=== PATIENT | female | born 1990 | race Caucasian/White ===

== ENCOUNTER 2019-03-16 16:50 | Observation (INO) ==
[2019-03-16] MEDS ORDERED: 0.9 % Sodium Chloride 500 ML ONE (19:34)
[2019-03-17] MEDS ORDERED: D5% in Water 1,000 ML IVC PRN (00:04)
[2019-03-17] MEDS ORDERED: Dextrose Gel 15 GM/37.5 ML TUBE PO PRN ×2 (00:04)
[2019-03-17 00:39] LABS: Hemoglobin 8.1 g/dL (11.5-15.4)
[2019-03-17 00:40] LABS: Hematocrit 28.6 % (35.3-44.9); Mean Corpuscular HGB Conc 28.3 g/dL (31.6-35.5); Mean Corpuscular Hemoglobin 20.6 pg (28.0-33.3); Mean Corpuscular Volume 72.6 fL (83.0-100.0); Mean Platelet Volume 10.2 fL (9.4-12.4); Platelet Count 478 K/mcL (140-400); Red Blood Count 3.94 M/mcL (3.82-4.97); Red Cell Distribution Width 24.6 % (11.5-14.5); White Blood Count 11.1 K/mcL (4.3-11.1)
[2019-03-17] MEDS ORDERED: Naloxone 0.4 MG/ML INJ IVP PRN (00:55)
[2019-03-17] MEDS ORDERED: Ondansetron 4 MG/2 ML VIAL IVP PRN (00:55)
[2019-03-17 00:59] LABS: Alanine Aminotransferase 48 Units/L (7-52); Albumin 4.1 g/dL (3.5-5.7); Albumin/Globulin Ratio 1.2 (1.1-2.2); Alkaline Phosphatase 145 Units/L (34-104); Aspartate Amino Transferase 37 Units/L (13-39); BUN/Creatinine Ratio 30 (6-26); Bilirubin,Total 0.4 mg/dL (0.3-1.0); Blood Urea Nitrogen 23 mg/dL (6-20); Calcium 8.8 mg/dL (8.6-10.3); Carbon Dioxide 23 mEq/L (23-29); Chloride 96 mEq/L (98-107); Globulin 3.4 g/dL (2.4-3.5); Glucose 525 mg/dL (70-105); Magnesium 2.1 mg/dL (1.6-2.6); Osmolality,Calculated 295 (280-300); Phosphorous 3.7 mg/dL (2.7-4.5); Sodium 129 mEq/L (136-145); Total Protein 7.5 g/dL (6.4-8.9); eGFR For African Americans > 60 (> 60); eGFR For Non-African Americans > 60 (> 60)
[2019-03-17] MEDS ORDERED: Insulin LISPRO 300 UNITS/3 ML VIAL SQ SCH ×4 (01:00→16:30)
[2019-03-17] MEDS: 0.9 % Sodium Chloride 1,000 ML IVC SCH ×3 (01:41→19:18)
[2019-03-17 02:20] LABS: Bilirubin,Urine Negative (Negative); Blood,Urine Trace (Negative); Clarity,Urine Cloudy (Clear); Color,Urine Yellow (Yellow); Glucose,Urine (UA) >=1000 mg/dL (Normal); Ketones,Urine Trace mg/dL (Negative); Leukocyte Esterase,Urine Small (Negative); Nitrite,Urine Positive (Negative); PH,Urine 6.5 pH Units (5.0-8.0); Protein,Urine Negative (Neg-Trace); Specific Gravity,Urine > 1.030 (1.010-1.025); Urobilinogen,Urine Normal (Normal)
[2019-03-17 02:21] LABS: Bacteria,Urine Many per hpf (None-Few); Hyaline Casts,Urine None Seen per lpf (None-Few); Squamous Epithelial Cell,Urine Many per lpf (None-Few); WBC,Urine TNTC per hpf (0-3)
[2019-03-17 04:54] LABS: Hematocrit 27.9 % (35.3-44.9); Hemoglobin 7.9 g/dL (11.5-15.4)
[2019-03-17 05:31] LABS: Thyroid Stimulating Hormone 3.224 mcIU/mL (0.340-5.600)
[2019-03-17 05:41] LABS: Folate 12.8 ng/mL (3.0-16.0)
[2019-03-17] MEDS: Insulin LISPRO 300 UNITS/3 ML VIAL SQ SCH ×4 (06:39→19:19)
[2019-03-17] MEDS: Insulin DETEMIR 100 UNIT/ML X5UNITS SQ SCH ×2 (08:05→19:31)
[2019-03-17 08:50] LABS: Hematocrit 26.3 % (35.3-44.9); Hemoglobin 7.5 g/dL (11.5-15.4)
[2019-03-17] MEDS: Iron Sucrose Complex 400 MG in 0.9 % Sodium Chloride 250 ML IVPB SCH (09:06)
[2019-03-17 09:19] LABS: Estimated Average Glucose 220 mg/dl
[2019-03-17 12:53] LABS: Hematocrit 25.4 % (35.3-44.9); Hemoglobin 7.5 g/dL (11.5-15.4)
[2019-03-17] MEDS ORDERED: ENOXAPARIN SQ SCH (13:45)
[2019-03-17 16:23] LABS: Hematocrit 26.5 % (35.3-44.9); Hemoglobin 7.6 g/dL (11.5-15.4)
[2019-03-17] MEDS ORDERED: SODIUM CHLORIDE/NAHCO3/KCL/PEG 4,000 ML SOLN.RECON PO ONE (17:00)
[2019-03-17] MEDS: *HR* Enoxaparin 60 MG/0.6 ML SYRINGE SQ SCH (19:35)
[2019-03-17 20:21] LABS: Hematocrit 25.6 % (35.3-44.9); Hemoglobin 7.3 g/dL (11.5-15.4)
[2019-03-18] MEDS: 0.9 % Sodium Chloride 1,000 ML IVC SCH ×3 (00:19→13:41)
[2019-03-18 03:31] LABS: Hematocrit 23.3 % (35.3-44.9); Hemoglobin 6.6 g/dL (11.5-15.4); Mean Corpuscular HGB Conc 28.3 g/dL (31.6-35.5)
[2019-03-18 03:32] LABS: Mean Corpuscular Hemoglobin 20.8 pg (28.0-33.3); Mean Corpuscular Volume 73.3 fL (83.0-100.0); Mean Platelet Volume 10.2 fL (9.4-12.4); Platelet Count 480 K/mcL (140-400); Red Blood Count 3.18 M/mcL (3.82-4.97); Red Cell Distribution Width 22.8 % (11.5-14.5); White Blood Count 10.6 K/mcL (4.3-11.1)
[2019-03-18 03:35] LABS: BUN/Creatinine Ratio 18 (6-26); Blood Urea Nitrogen 8 mg/dL (6-20); Carbon Dioxide 23 mEq/L (23-29); Chloride 108 mEq/L (98-107); Glucose 96 mg/dL (70-105); Osmolality,Calculated 284 (280-300); Potassium 3.7 mEq/L (3.5-5.1); Sodium 138 mEq/L (136-145); eGFR For African Americans > 60 (> 60); eGFR For Non-African Americans > 60 (> 60)
[2019-03-18] MEDS: *HR* Dextrose 50 % in Water (Syg) 50 ML SYRINGE IVP PRN ×3 (04:03→08:13)
[2019-03-18] MEDS: Insulin LISPRO 300 UNITS/3 ML VIAL SQ SCH ×6 (06:33→21:25)
[2019-03-18] MEDS ORDERED: Propofol 500 MG/50 ML INFUS..BTL ONE (06:53)
[2019-03-18] MEDS ORDERED: *HR* Propofol 200 MG/20 ML VIAL IVP ONE (06:53)
[2019-03-18] MEDS ORDERED: Lidocaine -MPF 2% 2 ML VIAL ONE (06:53)
[2019-03-18] MEDS: Iron Sucrose Complex 400 MG in 0.9 % Sodium Chloride 250 ML IVPB SCH (07:48)
[2019-03-18] MEDS: Insulin DETEMIR 100 UNIT/ML X5UNITS SQ SCH (07:55)
[2019-03-18] MEDS: *HR* Enoxaparin 60 MG/0.6 ML SYRINGE SQ SCH (07:58)
[2019-03-18] MEDS ORDERED: *HR* Enoxaparin 60 MG/0.6 ML SYRINGE SQ SCH (15:40)
[2019-03-18 17:00] LABS: Immature Reticulocyte % 29.8 % (11.0-38.0); Retculocyte # 0.06 M/mcL (0.05-0.10); Reticulocyte % 1.5 % (1.6-2.8)
[2019-03-18] MEDS ORDERED: Isovue-370 500 ML BOTTLE IVP ONE (20:00)
[2019-03-18] MEDS ORDERED: NON-FORMULARY MEDICATION 1 EACH EACH (Insulin Glargine,Hum.Rec.Anlog [Basaglar Kwikpen U-1 SQ SCH (21:00)
[2019-03-19] MEDS ORDERED: Insulin DETEMIR 100 UNIT/ML X5UNITS SQ ONE (03:19)
[2019-03-19] MEDS: 0.9 % Sodium Chloride 1,000 ML IVC SCH ×2 (07:48→11:33)
[2019-03-19] MEDS: Insulin LISPRO 300 UNITS/3 ML VIAL SQ SCH ×4 (08:39→12:31)
[2019-03-19 09:17] LABS: Hematocrit 30.2 % (35.3-44.9); Hemoglobin 8.8 g/dL (11.5-15.4); Mean Corpuscular HGB Conc 29.1 g/dL (31.6-35.5); Mean Corpuscular Hemoglobin 22.5 pg (28.0-33.3); Mean Corpuscular Volume 77.2 fL (83.0-100.0); Platelet Count 624 K/mcL (140-400); Red Blood Count 3.91 M/mcL (3.82-4.97); White Blood Count 8.2 K/mcL (4.3-11.1)
[2019-03-19 10:38] VITALS: BP 109/71
[2019-03-19] MEDS: Iron Sucrose Complex 400 MG in 0.9 % Sodium Chloride 250 ML IVPB SCH (11:33)
== END 2019-03-19 13:48 | disposition home or self-care (01) ==
LOC: 3BNU 16:50 → EMEROOARM 16:50 → 3BNU 18:17
PROVIDERS: ADMIT Internal Medicine; ATTEND Internal Medicine
PROC: ENDOEBX (2019-03-18 08:00)